=== PATIENT | female | born 1985 | race Caucasian/White ===

== ENCOUNTER 2016-09-23 04:40 | Emergency (ER) | payer OTHER ==
[~2016-09-23] VITALS: Ht 172.7 cm; Wt 81.0 kg
[~2016-09-23 04:40] MED LIST: ADIPEX-P37.5 MG PO; BACTRIM,SEPT1 TABLET PO; EXCEDRIN EXTRA1 EACH PO; FLEXERIL10 MG PO; MACROBID100 MG PO; MOTRIN800 MG PO; NAPROSYN500 MG PO; NOHOMEMEDS; PERCOCET 5/31 TABLET PO; PRENATAL TABLE1 EAC3 PO; PYRIDIUM100 MG PO
[2016-09-23 04:43] VITALS: BP 110/79
[2016-09-23 05:23] LABS: INFLUENZA A VIRAL ANTIGEN POSITIVE; INFLUENZA B VIRAL ANTIGEN NEGATIVE
[2016-09-23 05:25] LABS: ADD MIUA? YES; BILIRUBIN NEGATIVE; BLOOD TRACE; COLOR YELLOW ((YELLOW)); GLUCOSE (STRIP) NEGATIVE; KETONES NEGATIVE; LEUKOCYTES NEGATIVE; NITRITE NEGATIVE; PROTEIN (STRIP) NEGATIVE
[2016-09-23 05:29] LABS: HEMATOCRIT 36.7 % (36.0-46.0); MCH 31.1 PG (29.0-34.0); MCHC 33.8 G/DL (30.0-36.0); MEAN PLAT.VOLUME 10.2 uM^3 (9.5-12.4); PLATELET COUNT 190 K/uL (156-360); RBC DIS.WIDTH-CV 13.3 % (11.8-14.6); RED BLOOD COUNT 3.99 M/uL (3.80-5.20); WHITE BLOOD COUNT 5.1 K/uL (4.1-10.2)
[2016-09-23 05:30] LABS: CHLORIDE 104 mEq/L (99-109); POTASSIUM 3.8 mEq/L (3.7-5.4); SODIUM 139 mEq/L (136-147)
[2016-09-23 05:31] LABS: GLUCOSE 91 mg/dL (70-99)
[2016-09-23 05:33] LABS: ANION GAP 8 MEQ/L (2-14)
[2016-09-23 05:35] LABS: GFR ESTIMATE (CALCULATED) > 59 mL/min/
[2016-09-23 05:36] LABS: UREA NITROGEN (BUN) 10 mg/dL (9-23)
[2016-09-23 06:13] LABS: BACTERIA NONE SEEN; CASTS NONE SEEN /LPF; CRYSTALS NONE SEEN; EPITHELIAL CELLS RARE; MUCUS NONE SEEN; RED BLOOD CELLS NONE SEEN /HPF (0-5); UCUL ADDED? NO; WHITE BLOOD CELLS RARE /HPF (0-5)
[2016-09-23] MEDS ORDERED: TAMIFLU75 MG PO (07:54)
== END 2016-09-23 06:55 | disposition left against medical advice (07) ==
LOC: EME 04:40
PROVIDERS: Emergency Medicine
DX: R52 Pain, unspecified (principal); Z53.21 Procedure and treatment not carried out due to patient leaving prior to being seen by health care provider
CPT/HCPCS: 80048; 81003; 85027; 87502

== ENCOUNTER 2016-09-23 07:41 | Emergency (ER) | payer OTHER ==
[~2016-09-23] VITALS: Ht 172.7 cm; Wt 81.1 kg
[2016-09-23 07:44] VITALS: BP 117/79
[2016-09-23] MEDS ORDERED: TAMIFLU75 MG PO (07:54)
== END 2016-09-23 08:11 | disposition home or self-care (01) ==
LOC: EME 07:41
DX: J10.1 Influenza due to other identified influenza virus with other respiratory manifestations (principal)
CPT/HCPCS: 99281; 99283

== ENCOUNTER 2018-03-05 16:04 | Emergency (ER) | payer OTHER ==
[~2018-03-05] VITALS: Ht 172.7 cm; Wt 88.5 kg
[~2018-03-05 16:04] MED LIST changes: +TAMIFLU75 MG PO
[2018-03-05] MEDS ORDERED: ALPRAZOLAM1 MG PO (17:03)
[2018-03-05] MEDS ORDERED: WELLBUTRIN XL300 MG PO (17:03)
[2018-03-05] MEDS ORDERED: BUSPAR10 MG PO (17:04)
[2018-03-05] MEDS ORDERED: ATARAX,VISTARIL50 MG PO (17:04)
[2018-03-05 18:25] LABS: HEMATOCRIT 37.3 % (36.0-46.0); HEMOGLOBIN 12.7 G/DL (11.9-15.5); MCH 30.4 PG (29.0-34.0); MCV 89.2 FL (83-99); PLATELET COUNT 251 K/uL (156-360); RBC DIS.WIDTH-CV 13.1 % (11.8-14.6); RED BLOOD COUNT 4.18 M/uL (3.80-5.20); WHITE BLOOD COUNT 7.3 K/uL (4.1-10.2)
[2018-03-05 18:43] LABS: ALBUMIN 4.1 g/dL (3.2-4.8)
[2018-03-05 18:44] LABS: CHLORIDE 105 mEq/L (99-109); POTASSIUM 3.9 mEq/L (3.7-5.4); SODIUM 142 mEq/L (136-147)
[2018-03-05 18:46] LABS: GLUCOSE 83 mg/dL (70-99); TOTAL PROTEIN 7.1 g/dL (6.4-8.3)
[2018-03-05 18:48] LABS: TOTAL BILIRUBIN 0.6 mg/dL (0.0-1.0)
[2018-03-05 18:49] LABS: ALKALINE PHOSPHATASE 67 IU/L (3-129); SERUM ETHYL ALCOHOL < 10 mg/dL
[2018-03-05 18:50] LABS: CREATININE 0.9 mg/dL (0.6-1.3); GFR ESTIMATE (CALCULATED) > 59 mL/min/
[2018-03-05 18:51] LABS: AST (GOT) 14 IU/L (2-34); UREA NITROGEN (BUN) 8 mg/dL (9-23)
[2018-03-05 18:53] LABS: ALT (GPT) 12 IU/L (3-49)
[2018-03-05 19:32] VITALS: BP 00/0
[2018-03-06 07:54] LABS: AMPHETAMINE NEGATIVE (500 ng/mL); BENZODIAZEPINES PRESUMPTIVE POSITIVE (150 ng/mL); COCAINE NEGATIVE (150 ng/mL); METHAMPHETAMINE NEGATIVE (500 ng/mL); OPIATES (MORPHINE) NEGATIVE (100 ng/mL); PHENCYCLIDINE NEGATIVE (25 ng/mL); THC CANNABINOIDS NEGATIVE (50 ng/mL)
[2018-03-06 07:55] LABS: BARBITURATES NEGATIVE (200 ng/mL); BUPRENORPHINE NEGATIVE (10 ng/mL); METHADONE NEGATIVE (200 ng/mL); OXYCODONE PRESUMPTIVE POSITIVE (100 ng/mL); PROPOXYPHENE NEGATIVE (300 ng/mL); TRICYCLIC ANTIDEPRESSANTS NEGATIVE (300 ng/mL)
[2018-03-06 08:25] LABS: BENZODIAZEPINES, URINE SCREEN POSITIVE (200 ng/mL)
== END 2018-03-05 19:33 | disposition left against medical advice (07) ==
LOC: EME 16:04
PROVIDERS: Emergency Medicine
DX: Z00.8 Encounter for other general examination (principal); S40.022A Contusion of left upper arm, initial encounter; T74.11XA Adult physical abuse, confirmed, initial encounter; Y07.03 Male partner, perpetrator of maltreatment and neglect; Z87.440 Personal history of urinary (tract) infections
CPT/HCPCS: 80053; 84999; 85027; 99281; 99284; G0480

== ENCOUNTER 2018-04-06 10:33 | Emergency (ER) | payer OTHER ==
[~2018-04-06] VITALS: Ht 172.7 cm; Wt 88.9 kg
[~2018-04-06 10:33] MED LIST changes: +ALPRAZOLAM1 MG PO; +ATARAX,VISTARIL50 MG PO; +BUSPAR10 MG PO; +WELLBUTRIN XL300 MG PO
[2018-04-06 10:35] VITALS: BP 113/81
[2018-04-06 10:57] LABS: HEMATOCRIT 38.5 % (36.0-46.0); HEMOGLOBIN 13.1 G/DL (11.9-15.5); MCH 30.5 PG (29.0-34.0); MCV 89.7 FL (83-99); PLATELET COUNT 246 K/uL (156-360); RBC DIS.WIDTH-CV 13.2 % (11.8-14.6); RBC DIS.WIDTH-SD 43.5 % (39-53); RED BLOOD COUNT 4.29 M/uL (3.80-5.20); WHITE BLOOD COUNT 8.3 K/uL (4.1-10.2)
[2018-04-06 11:18] LABS: QUANTITATIVE HCG 9.2 MIU/ML
[2018-04-06 11:36] LABS: APPEARANCE CLOUDY ((CLEAR)); BILIRUBIN NEGATIVE; BLOOD LARGE; COLOR AMBER ((YELLOW)); GLUCOSE (STRIP) NEGATIVE; KETONES NEGATIVE; LEUKOCYTES SMALL; NITRITE NEGATIVE; PROTEIN (STRIP) 100; SPECIFIC GRAVITY 1.026 (1.000-1.030); UROBILINOGEN 0.2 MG/DL (0.2-1.0)
[2018-04-06 11:52] LABS: RED BLOOD CELLS TNTC /HPF (0-5); UCUL ADDED? YES
[2018-04-06 12:09] LABS: ALBUMIN 4.2 g/dL (3.2-4.8); CHLORIDE 106 mEq/L (99-109); POTASSIUM 3.9 mEq/L (3.7-5.4); SODIUM 141 mEq/L (136-147)
[2018-04-06 12:11] LABS: GLUCOSE 89 mg/dL (70-99)
[2018-04-06 12:12] LABS: TOTAL PROTEIN 7.2 g/dL (6.4-8.3)
[2018-04-06 12:13] LABS: TOTAL BILIRUBIN 0.3 mg/dL (0.0-1.0)
[2018-04-06 12:15] LABS: ALKALINE PHOSPHATASE 57 IU/L (3-129); CREATININE 0.8 mg/dL (0.6-1.3); GFR ESTIMATE (CALCULATED) > 59 mL/min/
[2018-04-06 12:16] LABS: UREA NITROGEN (BUN) 8 mg/dL (9-23)
[2018-04-06 12:17] LABS: AST (GOT) 13 IU/L (2-34)
[2018-04-06 12:18] LABS: ALT (GPT) 12 IU/L (3-49)
[2018-04-06 12:24] LABS: LIPASE 32 U/L (1.0-51.0)
== END 2018-04-06 14:58 | disposition left against medical advice (07) ==
LOC: EME 10:33
DX: N93.9 Abnormal uterine and vaginal bleeding, unspecified (principal); Z87.440 Personal history of urinary (tract) infections
CPT/HCPCS: 76801; 80053; 81003; 83690; 84702; 85027; 87077; 87086; 99281; 99284